=== PATIENT | female | born 1980 | race Two or more races ===

== ENCOUNTER 2020-03-19 11:14 | Outpatient (CLI) | payer OTHER | END 2020-03-19 18:00 | disposition home or self-care (01) | LOC: LAB 11:14 | DX: Z11.59 Encounter for screening for other viral diseases (principal); Z02.1 Encounter for pre-employment examination ==

== ENCOUNTER 2020-08-10 12:42 | Outpatient (CLI) | payer OTHER | END 2020-08-10 18:00 | disposition home or self-care (01) | LOC: PPH VACUNA 12:42 | DX: Z23 Encounter for immunization (principal) ==

== ENCOUNTER 2021-07-13 09:00 | Outpatient (CLI) | payer OTHER | END 2021-07-13 09:15 | disposition home or self-care (01) | LOC: PPH VACUNA 09:00 | PROVIDERS: ATTEND Emergency Medicine Pediatric Emergency Medicine | DX: Z23 Encounter for immunization (principal) ==

== ENCOUNTER 2022-03-29 07:03 | Outpatient (CLI) | payer OTHER | END 2022-03-29 23:00 | disposition home or self-care (01) | LOC: LAB 07:03 | PROVIDERS: ATTEND Obstetrics & Gynecology | DX: Z20.828 Contact with and (suspected) exposure to other viral communicable diseases (principal); Z20.818 Contact with and (suspected) exposure to other bacterial communicable diseases ==